=== PATIENT | male | born 1960 | race Caucasian/White ===

== ENCOUNTER 2022-11-26 15:40 | Inpatient (IN) | payer OTHER ==
[~2022-11-26] VITALS: Ht 165.1 cm; Wt 74.4 kg
--- NOTE | 2022-11-26 15:40 | NUR ---
BECCA MELARA from [facility] in [place] with c/o hyperglycemia. Per EMS BS=HI, pt was given NS 500ML bolus in route to ER. Pt to ER Rm 1A via EMS gurney. Placed on cont quality assurance monitor, pulse ox and BP. at bedside for MSE.
[2022-11-26 16:02] LABS: HEMATOCRIT 28.9 % (36.7-47.1); MEAN CORPUSCULAR HEMOGLOBIN 29.8 uug (23.8-33.4); MEAN CORPUSCULAR VOLUME 93.8 fL (73.0-96.2); PLATELET COUNT (AUTO) 173 K/uL (152-348)
[2022-11-26 16:14] LABS: ALANINE AMINOTRANSFERASE 12 U/L (16-63); ALKALINE PHOSPHATASE 109 U/L (50-136); BILIRUBIN,TOTAL 0.2 mg/dL (0.2-1.0); CARBON DIOXIDE 23 mmol/L (21-32); LIPASE 31 U/L (73-393); MAGNESIUM 2.5 mg/dL (1.8-2.4); PHOSPHOROUS 2.6 mg/dL (2.5-4.9); TOTAL PROTEIN, SERUM 6.6 g/dL (6.4-8.2)
[2022-11-26 16:33] LABS: ASPARTATE AMINOTRANSFERASE < 5 U/L (15-37)
[2022-11-26 16:36] LABS: CHLORIDE 127 mmol/L (98-107); POTASSIUM 2.3 mmol/L (3.5-5.1); UREA NITROGEN, BLOOD 112 mg/dL (7-18)
[2022-11-26] MEDS ORDERED: ASPI81TA31 PO (16:37)
[2022-11-26] MEDS ORDERED: BETH10TA2 PO (16:37)
[2022-11-26] MEDS ORDERED: DOCU-141 PO (16:37)
[2022-11-26] MEDS ORDERED: ATOR20TA PO (16:37)
[2022-11-26] MEDS ORDERED: SITA100T PO (16:38)
[2022-11-26] MEDS ORDERED: DIVA125C5 PO (16:38)
[2022-11-26] MEDS ORDERED: NA P133E RC (16:38)
[2022-11-26] MEDS ORDERED: TAMS-3 PO (16:38)
[2022-11-26] MEDS ORDERED: SENN8.6T19 PO (16:38)
[2022-11-26] MEDS ORDERED: FERR325T28 PO (16:38)
[2022-11-26] MEDS ORDERED: OMEP20CA15 PO (16:38)
[2022-11-26] MEDS ORDERED: BISA10SU61 RC (16:38)
[2022-11-26] MEDS ORDERED: ESCI20TA PO (16:38)
[2022-11-26] MEDS ORDERED: INSU100C (16:38)
[2022-11-26] MEDS ORDERED: ACET325C7 PO (16:38)
[2022-11-26] MEDS ORDERED: ACET-2605 PO (16:38)
[2022-11-26] MEDS ORDERED: METO50TA16 PO (16:38)
[2022-11-26] MEDS ORDERED: MAGN400O6 PO (16:38)
[2022-11-26] MEDS ORDERED: QUET100T PO (16:38)
[2022-11-26] MEDS ORDERED: INSU100V7 SQ (16:38)
[2022-11-26] MEDS ORDERED: MIRT-121 PO (16:38)
--- NOTE | 2022-11-26 16:40 | NUR ---
Received telephone call from Ayaz in lab with multiple critical lab results, reported to ER physician.
[2022-11-26 16:42] LABS: ABG BASE EXCESS -6.8 mmol/L; ABG HCO3 18.4 mmol/L; ABG PH 7.327 (7.350-7.450); ABG PO2 64.7 mmHg (75.0-100.0); ABG SITE RIGHT RADIAL; ABG TOTAL HEMOGLOBIN 12.1 G/dL (13.5-18.0); COHb 0.3 % (0.5-1.5); MetHb 0.1 % (0.0-1.5); O2Hb 89.5 % (94.0-97.0); VENT MODE ROOM AIR
[2022-11-26] MEDS ORDERED: POTASSIUM CHLORIDE 200 ML ONE (16:44)
[2022-11-26] MEDS ORDERED: IV NORMAL SALINE 500 ML BAG IV ONE (16:45)
--- NOTE | 2022-11-26 16:55 | NUR ---
Per ER physician pt to be admitted to CCU, nursing vine fruit farming supervisor notified. [facility] medical group called for admission.
[2022-11-26] MEDS: POTASSIUM CHLORIDE 50 ML IV SCH ×8 (17:18→20:37)
[2022-11-26] MEDS ORDERED: ONDANSETRON 4 MG/2 ML VIAL IV PRN (17:30)
[2022-11-26] MEDS ORDERED: ACETAMINOPHEN ES 500 MG TABLET PO PRN (17:30)
[2022-11-26] MEDS ORDERED: BISACODYL 10 MG SUPP.RECT RC PRN (17:30)
[2022-11-26] MEDS ORDERED: MAGNESIUM HYDROXIDE 30 ML LIQUID UDC PO PRN ×2 (17:30)
[2022-11-26] MEDS ORDERED: DEXTROSE 50% 50 ML DISP.SYRIN IV PRN (17:30)
[2022-11-26] MEDS ORDERED: ACETAMINOPHEN 325 MG TABLET PO PRN (17:30)
[2022-11-26] MEDS ORDERED: REMEDY ESSENTIAL ZINC PASTE 113 GM TP PRN (17:30)
--- NOTE | 2022-11-26 17:55 | NUR ---
Per pharmacist's order, I am able to administer insulin drip and KCl at the same time. Safety measures in place. Will continue to monitor.
[2022-11-26] MEDS: TAMSULOSIN HCL 0.4 MG CAP.SR.24H PO SCH (18:00)
[2022-11-26] MEDS: BLOOD SUGAR DIAGNOSTIC 1 EACH STRIP VI SCH ×6 (18:05→23:00)
[2022-11-26 18:11] LABS: *BILIRUBIN,URIN NEGATIVE (NEGATIVE); *BLOOD, URINE 2+ (NEGATIVE); *CLARITY,URINE CLEAR (CLEAR); *COLOR,URINE YELLOW (YELLOW); *KETONES,URINE NEGATIVE (NEGATIVE); *UROBILINOGEN,URINE 0.2 E.U./dl (NORMAL); LEUKOCYTE ESTERASE ,URINE NEGATIVE (NEGATIVE); NITRITE, URINE NEGATIVE (NEGATIVE); PH,URINE 5.5 (5.0-8.0)
[2022-11-26 18:14] LABS: UGLUCOSE 3+ (NEGATIVE)
[2022-11-26] MEDS ORDERED: IV 1/2 NS + KCL 20 MEQ BAG 1,000 ML IV PRN (18:30)
[2022-11-26] MEDS ORDERED: INSULIN REGULAR, HUMAN 100 UNITS in IV NORMAL SALINE 100 ML IV ONE ×2 (18:30)
[2022-11-26 19:00] VITALS: BP 112/74; TEMP 98.6; O2SAT 95
[2022-11-26] MEDS ORDERED: INSULIN REGULAR, HUMAN 100 UNITS in IV NORMAL SALINE 100 ML IV PRN ×2 (19:00)
--- NOTE | 2022-11-26 19:00 | NUR ---
Received in bed , patient is non verbal lungs clear, refused to open mouth and eyes, mouth dry 1900 blood sugar uis 372mg/dl insulin drip started @ 3.5 unit /hr potassium is 2.3 , potassium 80meq iv ordered . patient is not opening his mouth to be cleaned, all medication po is on hold patient is NPO Swallow evaluation ordered for 11/27/2022 2300 blood sugar 263mg/dl insulin drip is decreased to 3 units/hr
[2022-11-26 19:24] LABS: BACTERIA,URINE FEW /HPF (NONE SEEN); SQUAMOUS EPITHELIAL CELL,UR FEW /HPF (NONE SEEN); WBC,URINE NONE SEEN /HPF (0-3)
[2022-11-26 20:00] VITALS: BP 119/56; O2SAT 100
[2022-11-26] MEDS ORDERED: POTASSIUM CHLORIDE 50 ML ONE (20:18)
[2022-11-26] MEDS: METOPROLOL TARTRATE 50 MG TABLET PO SCH (20:51)
[2022-11-26] MEDS: ATORVASTATIN 20 MG TABLET PO SCH (20:51)
[2022-11-26] MEDS: MIRTAZAPINE 15 MG TABLET PO SCH (20:52)
[2022-11-26] MEDS: SENNOSIDES 1 TABLET PO SCH (20:52)
[2022-11-26] MEDS: QUETIAPINE FUMARATE 100 MG TABLET PO SCH (20:53)
[2022-11-26 21:00] VITALS: BP 112/70; O2SAT 100
[2022-11-26 22:00] VITALS: BP 111/74; O2SAT 100
[2022-11-26 23:00] VITALS: BP 113/74; O2SAT 95
[2022-11-27] VITALS (29 sets, daily range): BP systolic 81–152; BP diastolic 34–82; TEMP 97–99.9; O2SAT 82–99
--- NOTE | 2022-11-27 | NUR ---
0000 BLOOD SUGAR 214MG/DL INSULIN DRIP IS 2UNIT/HR
[2022-11-27] MEDS: BLOOD SUGAR DIAGNOSTIC 1 EACH STRIP VI SCH ×14 (00:35→23:58)
[2022-11-27 01:10] LABS: CREATININE 2.5 mg/dL (0.6-1.3); POTASSIUM 3.9 mmol/L (3.5-5.1)
--- NOTE | 2022-11-27 02:00 | NUR ---
Blood sugar 162mg/dl insulin drip decreased to 1.5 unit/hr
[2022-11-27 04:53] LABS: HEMATOCRIT 25.9 % (36.7-47.1); MEAN CORPUSCULAR HEMOGLOBIN 30.7 uug (23.8-33.4); PLATELET COUNT (AUTO) 170 K/uL (152-348)
[2022-11-27 05:11] LABS: CREATININE 2.6 mg/dL (0.6-1.3); MAGNESIUM 2.4 mg/dL (1.8-2.4); POTASSIUM 3.8 mmol/L (3.5-5.1)
[2022-11-27 05:20] LABS: THYROID STIMULATING HORMONE 1.015 mIU/mL (0.358-3.740)
[2022-11-27] MEDS ORDERED: PANTOPRAZOLE SODIUM 40 MG VIAL ONE (06:38)
[2022-11-27] MEDS ORDERED: PANTOPRAZOLE SODIUM 40 MG TABLET.DR PO ONE (06:41)
[2022-11-27] MEDS: PANTOPRAZOLE SODIUM 40 MG TABLET.DR PO SCH (06:42)
--- NOTE | 2022-11-27 06:46 | NUR ---
Sent morning labs to [facility] , waiting for new orders order in for swallow evaluation patient is awake , alert x2 and speaking with a normal tone turned and reposition, urine x4, no bm patient is npo. 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 blood sugar 0600 196mg/dl increased insulin drip to 2 unit/hr potassium is now 3.8, no signs of distress report given to lucy GALLEGOS .
--- NOTE | 2022-11-27 07:00 | NUR ---
Received pt. sleeping intermittently when engage AAOx4. vitals stable on sinus tachycardia, afebrile. 2L NC saturation unreadable on ekg monitor. Pt. Received on insulin drip running at 2units/hr. IV line bilateral upper extremities patent and infusing with IVF. Diaper on and sucked in urine, patient changed. No skin breakdown noted. Will continue with care plan.
--- NOTE | 2022-11-27 07:30 | NUR ---
Call Pharmacist Debra and informed her of system error when performing accu-check. All high risk medications requiring a witness signature when changes to the drip occurred based on glucose level. Patient received on Insulin drip. and when accu-check done an changes in rate performed system did not required a witness as per protocol. Pharmacist agreed this is out of protocol.
[2022-11-27] MEDS ORDERED: METOPROLOL TARTRATE 50 MG TABLET ONE ×2 (08:00→08:02)
[2022-11-27] MEDS ORDERED: DOCUSATE SODIUM 100 MG CAPSULE PO ONE (08:00)
[2022-11-27] MEDS ORDERED: ESCITALOPRAM OXALATE 10 MG TABLET ONE (08:00)
[2022-11-27] MEDS ORDERED: ASPIRIN 81 MG TAB.CHEW ONE (08:00)
[2022-11-27] MEDS ORDERED: BETHANECHOL CHLORIDE 25 MG TABLET ONE (08:01)
[2022-11-27] MEDS: DOCUSATE SODIUM 100 MG CAPSULE PO SCH (08:19)
[2022-11-27] MEDS: METOPROLOL TARTRATE 50 MG TABLET PO SCH ×2 (08:19→21:00)
[2022-11-27] MEDS: ASPIRIN 81 MG TAB.CHEW PO SCH (08:19)
[2022-11-27] MEDS: ESCITALOPRAM OXALATE 10 MG TABLET PO SCH (08:19)
[2022-11-27] MEDS: BETHANECHOL CHLORIDE 10 MG TABLET PO SCH ×3 (08:33→16:40)
[2022-11-27] MEDS ORDERED: Medication Not On Formulary EA (Sitagliptin Phosphate (Januvia) 100 MG) PO SCH (09:00)
--- NOTE | 2022-11-27 09:17 | NUR ---
Pharmacist Rebecca at bedside and at this time I was informed there is a glitch in the computer system and for now I should document accu-check with nursing notes on IV spread-sheet.
[2022-11-27] MEDS ORDERED: INSULIN REGULAR, HUMAN 300 UNITS/3 ML VIAL SQ PRN (09:45)
[2022-11-27] MEDS ORDERED: DEXTROSE 50% 50 ML DISP.SYRIN IV PRN ×2 (09:45→17:00)
--- NOTE | 2022-11-27 10:00 | NUR ---
Attending ARMANDO Schroeder in the unit to follow up on pt. report given orders to insert sanches catheter received. Insulin drip dcd as ordered and IVF changed.
[2022-11-27] MEDS: IV D5 1/2 NS 1000 ML 1,000 ML IV PRN ×3 (10:22→20:24)
[2022-11-27] MEDS: INSULIN REGULAR, HUMAN 300 UNIT/3 ML VIAL SQ PRN ×3 (12:00→19:13)
--- NOTE | 2022-11-27 16:17 | NUR ---
Patient with saturation down to 87% sustained for 30 minutes O2 increased to 4LNC. this happened when pt. was repositioned to the right side. saturation improved to 92%. Will continue to monitor. Addendum: 11/27/22 at 1751 by BRIDGER HUIZAR RN [id number] pt. again with saturation dropping Oxygen increased to 6LNC
--- NOTE | 2022-11-27 16:30 | NUR ---
Attending called to be notified of pt's most current blood sugar of 435. patient covered with SS per protocol awaiting call back.
[2022-11-27] MEDS ORDERED: ACETAMINOPHEN 325 MG TABLET ONE (16:38)
[2022-11-27] MEDS: ACETAMINOPHEN 325 MG TABLET PO PRN (16:40)
--- NOTE | 2022-11-27 16:57 | NUR ---
A call back from attending report of most current pt's condition and orders for NPO, Swallow eval and to start on Q6H Moderate SS received.
[2022-11-27] MEDS ORDERED: TAMSULOSIN HCL 0.4 MG CAP.SR.24H ONE (17:22)
[2022-11-27] MEDS: TAMSULOSIN HCL 0.4 MG CAP.SR.24H PO SCH (17:29)
--- NOTE | 2022-11-27 17:30 | NUR ---
Pt. semi-lethargic now NPO.
--- NOTE | 2022-11-27 17:47 | NUR ---
Post ABG pt. placed on NR 15Liters saturation of 88-89. ABg results reported to attending ARMANDO. Elda.
--- NOTE | 2022-11-27 17:47 | NUR ---
Attending notified of patient's decompensation orders for stat chest X-ray and ABG received.
[2022-11-27 21:11] LABS: CREATININE 2.8 mg/dL (0.6-1.3); POTASSIUM 3.8 mmol/L (3.5-5.1)
[2022-11-27] MEDS ORDERED: MIRTAZAPINE 15 MG TABLET ONE (21:44)
[2022-11-27] MEDS ORDERED: ATORVASTATIN 20 MG TABLET ONE (21:45)
[2022-11-27] MEDS ORDERED: QUETIAPINE FUMARATE 100 MG TABLET ONE (21:45)
[2022-11-27] MEDS: MIRTAZAPINE 15 MG TABLET PO SCH (21:48)
[2022-11-27] MEDS: ATORVASTATIN 20 MG TABLET PO SCH (21:48)
[2022-11-27] MEDS: QUETIAPINE FUMARATE 100 MG TABLET PO SCH (21:48)
[2022-11-27] MEDS: SENNOSIDES 1 TABLET PO SCH (21:52)
[2022-11-27] MEDS ORDERED: NOREPINEPHRINE BITARTRATE 4 MG/4 ML VIAL IV ONE (22:24)
[2022-11-27] MEDS ORDERED: NOREPINEPHRINE BITARTRATE 8 MG in IV NORMAL SALINE 242 ML IV PRN (22:30)
[2022-11-27] MEDS: NOREPINEPHRINE BITARTRATE 8 MG in IV NORMAL SALINE 242 ML IV PRN (22:30)
[2022-11-27] MEDS: IV 1/2NS 1000 ML 1,000 ML IV PRN (22:41)
[2022-11-28] VITALS (39 sets, daily range): BP systolic 83–134; BP diastolic 24–81; TEMP 98.2–100; O2SAT 74–97
[2022-11-28] LABS: ABG PCO2 34.5 mmHg (35.0-45.0); ABG PH 7.336 (7.350-7.450); ABG SITE RIGHT RADIAL; ABG TOTAL HEMOGLOBIN 11.8 G/dL (13.5-18.0); MetHb 0.6 % (0.0-1.5); O2Hb 82.5 % (94.0-97.0); VENT MODE Nasal Cannula
[2022-11-28 01:29] LABS: CREATININE 3.1 mg/dL (0.6-1.3); MAGNESIUM 1.7 mg/dL (1.8-2.4); PHOSPHOROUS 3.3 mg/dL (2.5-4.9); POTASSIUM 3.1 mmol/L (3.5-5.1)
[2022-11-28] MEDS: IV 1/2NS 1000 ML 1,000 ML IV PRN ×3 (03:15→14:42)
[2022-11-28] MEDS: BLOOD SUGAR DIAGNOSTIC 1 EACH STRIP VI SCH ×4 (04:45→23:43)
[2022-11-28 04:54] LABS: HEMATOCRIT 27.7 % (36.7-47.1); MEAN CORPUSCULAR HEMOGLOBIN 30.2 uug (23.8-33.4); MEAN CORPUSCULAR VOLUME 93.8 fL (73.0-96.2); PLATELET COUNT (AUTO) 197 K/uL (152-348)
[2022-11-28 05:17] LABS: CREATININE 3.3 mg/dL (0.6-1.3); MAGNESIUM 1.6 mg/dL (1.8-2.4); PHOSPHOROUS 3.3 mg/dL (2.5-4.9); POTASSIUM 3.4 mmol/L (3.5-5.1)
[2022-11-28] MEDS: PANTOPRAZOLE SODIUM 40 MG TABLET.DR PO SCH (06:46)
--- NOTE | 2022-11-28 07:00 | NUR ---
Received patient on group sales manager in a semi-lethargic state, when awake oriented X1. Cardiac-r[place] on sinus tachycardia highest observed 120-125, levophed running sbp above 120's will titrate down per protocol. low-grade fever, On bipap 18/5 rate of 24 and 100% FIO2 saturation in the mid 90's. patient tachypneic. Pritchett to gravity NF in place auscultated. IV lines patent. Will continue to monitor.
[2022-11-28] MEDS: METOPROLOL TARTRATE 50 MG TABLET PO SCH ×2 (08:01→20:55)
[2022-11-28] MEDS: ESCITALOPRAM OXALATE 10 MG TABLET PO SCH (08:01)
[2022-11-28] MEDS: BETHANECHOL CHLORIDE 10 MG TABLET PO SCH ×3 (08:01→17:31)
[2022-11-28] MEDS: DOCUSATE SODIUM 100 MG CAPSULE PO SCH (08:01)
[2022-11-28] MEDS: ASPIRIN 81 MG TAB.CHEW PO SCH (08:01)
[2022-11-28] MEDS: ACETAMINOPHEN 325 MG TABLET PO PRN (08:03)
[2022-11-28 08:39] LABS: CREATININE 3.4 mg/dL (0.6-1.3); MAGNESIUM 1.6 mg/dL (1.8-2.4); PHOSPHOROUS 4.3 mg/dL (2.5-4.9); POTASSIUM 4.3 mmol/L (3.5-5.1)
[2022-11-28] MEDS: NOREPINEPHRINE BITARTRATE 8 MG in IV NORMAL SALINE 242 ML IV PRN (13:26)
--- NOTE | 2022-11-28 13:30 | NUR ---
Attending Elda ROBERTS in the unit to examine pt. report given orders to decrease IVF to 75cc/hr received,.
--- NOTE | 2022-11-28 14:28 | NUR ---
PAtient now with saturation of 97-98%, fully awake and verbal attempting to remove BIPAP and getting increasingly aggressive, pushing staff away.
--- NOTE | 2022-11-28 15:32 | NUR ---
DIO2 down to 80%.
[2022-11-28 16:17] LABS: CREATININE 3.4 mg/dL (0.6-1.3); POTASSIUM 5.3 mmol/L (3.5-5.1)
[2022-11-28] MEDS: MAGNESIUM SULFATE/D5W 100 ML IV SCH ×2 (17:29→18:55)
[2022-11-28] MEDS: TAMSULOSIN HCL 0.4 MG CAP.SR.24H PO SCH (17:31)
--- NOTE | 2022-11-28 17:48 | NUR ---
Oral care provided and pt. taken off bipap for 5 minutes, placed on NR. saturation drop to 79% patient noted to be in labor breathing placed back on BIPAP with saturation of 100%.
[2022-11-28] MEDS: INSULIN REGULAR, HUMAN 300 UNIT/3 ML VIAL SQ PRN ×3 (17:53→23:45)
[2022-11-28] MEDS: ATORVASTATIN 20 MG TABLET PO SCH (21:18)
[2022-11-28] MEDS: QUETIAPINE FUMARATE 100 MG TABLET PO SCH (21:18)
[2022-11-28] MEDS: MIRTAZAPINE 15 MG TABLET PO SCH (21:18)
[2022-11-28] MEDS: SENNOSIDES 1 TABLET PO SCH (21:18)
[2022-11-28 21:20] LABS: CREATININE 3.4 mg/dL (0.6-1.3); POTASSIUM 5.1 mmol/L (3.5-5.1)
[2022-11-28] MEDS: BUMETANIDE 1 MG/4 ML VIAL IV ONE ×2 (21:21→21:42)
[2022-11-28 21:24] LABS: MAGNESIUM 2.4 mg/dL (1.8-2.4); PHOSPHOROUS 4.6 mg/dL (2.5-4.9)
[2022-11-29] VITALS (56 sets, daily range): BP systolic 10–156; BP diastolic 30–63; TEMP 97.4–99.1; O2SAT 75–92
[2022-11-29 01:15] LABS: CREATININE 3.4 mg/dL (0.6-1.3); MAGNESIUM 2.2 mg/dL (1.8-2.4); PHOSPHOROUS 4.2 mg/dL (2.5-4.9); POTASSIUM 4.9 mmol/L (3.5-5.1)
[2022-11-29 04:46] LABS: MEAN CORPUSCULAR HEMOGLOBIN 30.6 uug (23.8-33.4)
[2022-11-29 04:48] LABS: MEAN CORPUSCULAR VOLUME 92.7 fL (73.0-96.2); PLATELET COUNT (AUTO) 75 K/uL (152-348)
[2022-11-29 05:05] LABS: CREATININE 3.4 mg/dL (0.6-1.3); MAGNESIUM 2.3 mg/dL (1.8-2.4); PHOSPHOROUS 4.3 mg/dL (2.5-4.9); POTASSIUM 4.8 mmol/L (3.5-5.1)
[2022-11-29 05:12] LABS: HEMATOCRIT 17.6 % (36.7-47.1)
[2022-11-29 05:23] LABS: MEAN CORPUSCULAR HEMOGLOBIN 30.5 uug (23.8-33.4)
[2022-11-29 05:25] LABS: MEAN CORPUSCULAR VOLUME 91.8 fL (73.0-96.2); PLATELET COUNT (AUTO) 75 K/uL (152-348)
[2022-11-29] MEDS: BLOOD SUGAR DIAGNOSTIC 1 EACH STRIP VI SCH ×3 (05:44→18:25)
[2022-11-29] MEDS: INSULIN REGULAR, HUMAN 300 UNIT/3 ML VIAL SQ PRN ×3 (05:46→18:27)
[2022-11-29] MEDS: PANTOPRAZOLE SODIUM 40 MG TABLET.DR PO SCH (06:11)
[2022-11-29] MEDS: IV 1/2NS 1000 ML 1,000 ML IV PRN (06:42)
[2022-11-29] MEDS: METOPROLOL TARTRATE 50 MG TABLET PO SCH ×2 (08:13→21:00)
[2022-11-29] MEDS: DOCUSATE SODIUM 100 MG CAPSULE PO SCH (08:17)
[2022-11-29] MEDS: ESCITALOPRAM OXALATE 10 MG TABLET PO SCH (08:18)
[2022-11-29] MEDS ORDERED: ASPIRIN 81 MG TAB.CHEW PO SCH (09:00)
--- NOTE | 2022-11-29 09:00 | NUR ---
Pt seen and examined by Dr. Tan
[2022-11-29 09:15] LABS: CREATININE 3.4 mg/dL (0.6-1.3); MAGNESIUM 2.4 mg/dL (1.8-2.4); PHOSPHOROUS 4.4 mg/dL (2.5-4.9); POTASSIUM 4.8 mmol/L (3.5-5.1)
--- NOTE | 2022-11-29 09:45 | NUR ---
Pt seen and examined by Rose Schroeder DNP. Clarification of orders, IVF 1/NS to run at 55cc/hr and Free H2O via NGT 250cc q 6 hrs. Noitified of H/H and low platelet count, ASA held this am. Blood transfusion ordered
--- NOTE | 2022-11-29 09:52 | NUR ---
ABG drawn and am CXR completed
[2022-11-29] MEDS ORDERED: PIPERACILLIN/TAZO 2.25 G in IV DEXTROSE 5% 50 ML IV SCH (10:00)
[2022-11-29] MEDS: PIPERACILLIN SODIUM/TAZOBACTAM 3.375 G in IV DEXTROSE 5% 100 ML IV SCH ×2 (10:23→21:10)
--- NOTE | 2022-11-29 12:15 | NUR ---
Per am CXR NG tube at GE junction advised to advance 10cm. NGT advanced 70 cm at right natre, secured in place. Position verified by Air ascultated over epigastrum
--- NOTE | 2022-11-29 12:30 | NUR ---
Pt desaturation to 84%. BIPAP with leak. RT notified, ordered Protecta gel seal. SBP in 70's Levo gtt increased for BP support
[2022-11-29] MEDS: IPRATROPIUM BROMIDE 0.5 MG/2.5 ML NEBU NEB SCH ×2 (12:50→19:26)
[2022-11-29 12:54] LABS: ABG BASE EXCESS -8.3 mmol/L; ABG HCO3 15.3 mmol/L; ABG PCO2 27.6 mmHg (35.0-45.0); ABG PH 7.363 (7.350-7.450); ABG PO2 57.7 mmHg (75.0-100.0); ABG SITE RIGHT RADIAL; VENT MODE BIPAP
[2022-11-29] MEDS ORDERED: ALBUTEROL SULFATE 2.5 MG/3 ML NEBU NEB SCH (13:30)
--- NOTE | 2022-11-29 14:25 | NUR ---
)s saturatioins in the low 80's. Pt with coarse breath sounds, suctioned for minimal secretions, BIPAP readjusted to minimize air leak. Remains on BIPAP rete 24 18/5 100% O2 call placed to Dr. Tan.
--- NOTE | 2022-11-29 14:40 | NUR ---
ECG changes appears to be A-fib with rapid VR 150's called for stat EKG, BP 84/42. Call polaced to Rose Schroeder DNP to notify of hemodynamic chamges.
[2022-11-29] MEDS ORDERED: DILTIAZEM HCL 25 MG IV IV ONE (14:45)
--- NOTE | 2022-11-29 14:50 | NUR ---
Recevied order for Cardizem 10mg IV to treat rapid HR per Rose Schroeder DNP
--- NOTE | 2022-11-29 15:20 | NUR ---
C Elda DNP updated on Pts condition, saturation remains low 76-82 despite changes to BIPAP and Cardizem for HR, transient decrease in rate to the 110's now 135-140. BP support with Levo at 0.05 mcg/kg/min, EKG confirmed A-fib with RVR.
[2022-11-29] MEDS ORDERED: DILTIAZEM HCL IV 125 MG in IV NORMAL SALINE 100 ML IV PRN (16:00)
--- NOTE | 2022-11-29 16:45 | NUR ---
Cardizem gtt started for Heart rate control, remains in A-fib RVR
[2022-11-29] MEDS: DILTIAZEM HCL IV 125 MG in IV NORMAL SALINE 100 ML IV PRN (16:46)
[2022-11-29] MEDS: PHENYLEPHRINE IV 50 MG in IV NORMAL SALINE 245 ML IV PRN ×2 (17:28→20:28)
--- NOTE | 2022-11-29 17:30 | NUR ---
Kimani started for BP support due to cardiac irritability plan to waen Levo as tolerated
[2022-11-29 17:45] LABS: HEMATOCRIT 23.3 % (36.7-47.1)
[2022-11-29 17:53] LABS: *BILIRUBIN,URIN NEGATIVE (NEGATIVE); *BLOOD, URINE 2+ (NEGATIVE); *CLARITY,URINE CLEAR (CLEAR); *COLOR,URINE YELLOW (YELLOW); *KETONES,URINE NEGATIVE (NEGATIVE); *UROBILINOGEN,URINE 0.2 E.U./dl (NORMAL); LEUKOCYTE ESTERASE ,URINE 2+ (NEGATIVE); NITRITE, URINE NEGATIVE (NEGATIVE); UGLUCOSE NEGATIVE (NEGATIVE)
[2022-11-29 17:59] LABS: *CREATININE,URINE 44.7 mg/dL (30-125); *URINE TOTAL PROTEIN RANDOM 70.3 mg/dL (<150/24HR)
[2022-11-29] MEDS: TAMSULOSIN HCL 0.4 MG CAP.SR.24H PO SCH (17:59)
[2022-11-29] MEDS ORDERED: FUROSEMIDE 40 MG/4 ML VIAL IV ONE (18:00)
[2022-11-29] MEDS ORDERED: BUMETANIDE 1 MG/4 ML VIAL IV ONE (19:45)
[2022-11-29] MEDS: MIRTAZAPINE 15 MG TABLET PO SCH (21:09)
[2022-11-29] MEDS: QUETIAPINE FUMARATE 100 MG TABLET PO SCH (21:09)
[2022-11-29] MEDS: ATORVASTATIN 20 MG TABLET PO SCH (21:09)
[2022-11-29] MEDS: ACETAMINOPHEN 325 MG TABLET PO PRN (21:09)
[2022-11-29] MEDS: SENNOSIDES 1 TABLET PO SCH (21:12)
[2022-11-30] VITALS (62 sets, daily range): BP systolic 83–132; BP diastolic 33–77; TEMP 98.1–99.5; O2SAT 76–97
[2022-11-30] MEDS ORDERED: BUMETANIDE 1 MG/4 ML VIAL ONE (00:03)
[2022-11-30] MEDS: IPRATROPIUM BROMIDE 0.5 MG/2.5 ML NEBU NEB SCH ×4 (00:38→19:17)
[2022-11-30] MEDS: DILTIAZEM HCL IV 125 MG in IV NORMAL SALINE 100 ML IV PRN ×2 (00:55→07:30)
[2022-11-30] MEDS: PHENYLEPHRINE IV 50 MG in IV NORMAL SALINE 245 ML IV PRN ×4 (00:58→08:20)
[2022-11-30 04:52] LABS: HEMATOCRIT 25.3 % (36.7-47.1); MEAN CORPUSCULAR HEMOGLOBIN 30.3 uug (23.8-33.4); MEAN CORPUSCULAR VOLUME 90.5 fL (73.0-96.2); PLATELET COUNT (AUTO) 70 K/uL (152-348)
[2022-11-30 05:05] LABS: CREATININE 3.7 mg/dL (0.6-1.3); MAGNESIUM 2.4 mg/dL (1.8-2.4); PHOSPHOROUS 6.9 mg/dL (2.5-4.9); POTASSIUM 5.4 mmol/L (3.5-5.1)
[2022-11-30] MEDS ORDERED: PHENYLEPHRINE 10 MG/1 ML VIAL ONE (05:06)
[2022-11-30] MEDS: BLOOD SUGAR DIAGNOSTIC 1 EACH STRIP VI SCH ×4 (05:51→17:25)
[2022-11-30] MEDS: INSULIN REGULAR, HUMAN 300 UNIT/3 ML VIAL SQ PRN ×4 (05:52→17:43)
--- NOTE | 2022-11-30 06:38 | NUR ---
Pt received in CCU 1 on BIPAP 20/5 BUR 24 fIO2 100% Pt sat around 80%. Pt able to cooperate for eye care and understood no to pull Bipap mask. Pt remains on Neosynephrine to sustain SBP. nO FAMILY MEMBER TO UPDATE PLAN OF CARE. Monitor glucose MN 210 in AM 201, need insulin coverage Pt tolerates well water flushed and NA improved this AM to 150. Concha Galindo was called for critical value BUN 111 K 5.4 Cr 3.7 Md order to wait for the rounding MD in AM. Pt received BUMEX no good response and WT IN AM 157.9 P. Continue monitoring condition, BIPAP remains same setting, f/c to gravity HOB elevated and Pt on vasopressor drip. h/h 8.5/25.3 post PRBSx1 transfusion given on 11/29/22 Endorse care to incoming nurse
[2022-11-30] MEDS: PANTOPRAZOLE SODIUM 40 MG TABLET.DR PO SCH (07:02)
--- NOTE | 2022-11-30 07:30 | NUR ---
Received report on Pt, lying in bed with eyes closed awakes to verbal and light tactile stimuli, open eyes and moves upper extremities to command. See full assessment hemodynamically stable on Cardizem gtt and pressor support.
--- NOTE | 2022-11-30 08:20 | NUR ---
Lung sounds with rhonchi, Received Atrovent treatment and NT suctioned per RT, Thick blood tinged sputum, sent for Culture. Vagal response with sustained decreased HR Sinus Bradycardia in 50's, Cardizem gtt decreased
[2022-11-30] MEDS: DOCUSATE SODIUM 100 MG CAPSULE PO SCH (08:44)
[2022-11-30] MEDS: PANTOPRAZOLE ORAL SUSPENSION 40 MG SUSPDR.PKT NG SCH (08:44)
[2022-11-30] MEDS: ESCITALOPRAM OXALATE 10 MG TABLET PO SCH (08:45)
[2022-11-30] MEDS: METOPROLOL TARTRATE 50 MG TABLET PO SCH ×2 (08:46→20:38)
--- NOTE | 2022-11-30 09:00 | NUR ---
ECG remains SR 80',s BP stable on support. Cardizem gtt at 12mg/hr, Kimani remains at 3 mcg/kg/min
[2022-11-30] MEDS: PIPERACILLIN SODIUM/TAZOBACTAM 3.375 G in IV DEXTROSE 5% 100 ML IV SCH ×2 (10:00→21:04)
[2022-11-30 10:21] LABS: ABG BASE EXCESS -11.6 mmol/L; ABG HCO3 13.6 mmol/L; ABG PCO2 27.8 mmHg (35.0-45.0); ABG PH 7.306 (7.350-7.450); ABG PO2 62.1 mmHg (75.0-100.0); ABG SITE LEFT RADIAL; ABG TOTAL HEMOGLOBIN 7.6 G/dL (13.5-18.0); COHb 0.3 % (0.5-1.5); MetHb 0.6 % (0.0-1.5); VENT MODE BIPAP
[2022-11-30] MEDS ORDERED: AMIODARONE HCL IV 450 MG in IV DEXTROSE 5% 250 ML IV PRN (10:45)
[2022-11-30] MEDS ORDERED: AMIODARONE HCL IV 150 MG in IV DEXTROSE 5% 100 ML IV ONE (11:00)
--- NOTE | 2022-11-30 12:00 | NUR ---
Pt seen and examined by Dr. Doss received orders for diuretics
[2022-11-30] MEDS: PHENYLEPHRINE IV 100 MG in IV NORMAL SALINE 240 ML IV PRN ×2 (12:30→20:36)
--- NOTE | 2022-11-30 12:30 | NUR ---
Pt seen and examined by Dr. Tan. Cardizem gtt weaned off. cafeteria monitor shows NSR in 70-80's no ectopy. nita gtt double concentrated continues at 3/mcg/hg/min for BP support SBP 90's
[2022-11-30] MEDS ORDERED: METOLAZONE 2.5 MG TABLET PO STA (13:24)
[2022-11-30] MEDS ORDERED: BUMETANIDE 1 MG/4 ML VIAL IV ONE (13:30)
--- NOTE | 2022-11-30 14:00 | NUR ---
Remains in NSR controlled rate 88-92. BP stable with pressor support. No need for antiarrhythmic Dr Shi aware Amiodarone not started
[2022-11-30] MEDS: TAMSULOSIN HCL 0.4 MG CAP.SR.24H PO SCH (17:22)
[2022-11-30] MEDS: MIRTAZAPINE 15 MG TABLET PO SCH (20:47)
[2022-11-30] MEDS: SENNOSIDES 1 TABLET PO SCH (20:47)
[2022-11-30] MEDS: ACETAMINOPHEN 325 MG TABLET PO PRN (20:47)
[2022-11-30] MEDS: ATORVASTATIN 20 MG TABLET PO SCH (20:47)
[2022-11-30] MEDS: QUETIAPINE FUMARATE 100 MG TABLET PO SCH (20:48)
[2022-12-01] VITALS (41 sets, daily range): BP systolic 87–128; BP diastolic 17–58; TEMP 98.2–98.9; O2SAT 28–98
[2022-12-01] MEDS: BLOOD SUGAR DIAGNOSTIC 1 EACH STRIP VI SCH ×3 (00:07→12:16)
[2022-12-01] MEDS: IPRATROPIUM BROMIDE 0.5 MG/2.5 ML NEBU NEB SCH ×3 (00:51→13:19)
[2022-12-01] MEDS: PHENYLEPHRINE IV 100 MG in IV NORMAL SALINE 240 ML IV PRN ×2 (04:42→12:17)
[2022-12-01 05:11] LABS: HEMATOCRIT 21.3 % (36.7-47.1); MEAN CORPUSCULAR HEMOGLOBIN 30.3 uug (23.8-33.4); MEAN CORPUSCULAR VOLUME 90.8 fL (73.0-96.2)
[2022-12-01 05:36] LABS: BILIRUBIN,TOTAL 0.4 mg/dL (0.2-1.0); CREATININE 3.9 mg/dL (0.6-1.3); MAGNESIUM 2.4 mg/dL (1.8-2.4); PHOSPHOROUS 7.8 mg/dL (2.5-4.9); POTASSIUM 5.2 mmol/L (3.5-5.1); TOTAL PROTEIN, SERUM 4.9 g/dL (6.4-8.2)
[2022-12-01] MEDS: INSULIN REGULAR, HUMAN 300 UNIT/3 ML VIAL SQ PRN (05:50)
[2022-12-01 06:01] LABS: PLATELET COUNT (AUTO) 43 K/uL (152-348)
--- NOTE | 2022-12-01 06:43 | NUR ---
Pt received in CCU 1 on BIPAP setting 20/10BUR 24 fIO2 100% Pt sat 94-98%. Pt able to cooperate for eye care and understood no to pull Bipap mask. Pt remains on Neosynephrine to sustain SBP. NO FAMILY MEMBER TO UPDATE PLAN OF CARE. Monitor glucose in AM 173 insulin given according to sliding scale. Pt tolerates well water flushed. Dr Wolff was notified for abnormal labs this AM.. Dr WOLFF gave orders. Pt received diuretics during AM SHIFT.total output 650 ml. WT IN AM 160 pounds. Continue monitoring condition, BIPAP remains same setting, f/c to gravity HOB elevated and Pt on vasopressor drip. Pending to be transfuse one unit of PRBC FOR HEM 7.1 Endorse care to incoming nurse
--- NOTE | 2022-12-01 07:00 | NUR ---
Received pt. on BIPAP 04/03 Rate of 24 FIO2 100%, Tachypneic rate 30. On monitoring coordinator NSR with sbp maintained above 90's with neosynephrine running at maximum rate. Pritchett to gravity with minimal sedimented output. IV line patent. NG-T in place. Will continue to monitor.
[2022-12-01] MEDS: PANTOPRAZOLE ORAL SUSPENSION 40 MG SUSPDR.PKT NG SCH (08:03)
[2022-12-01] MEDS: DOCUSATE SODIUM 100 MG CAPSULE PO SCH (08:03)
[2022-12-01] MEDS: METOPROLOL TARTRATE 50 MG TABLET PO SCH (08:03)
[2022-12-01] MEDS: ESCITALOPRAM OXALATE 10 MG TABLET PO SCH (08:03)
[2022-12-01 09:17] LABS: ABG BASE EXCESS -12.6 mmol/L; ABG HCO3 13.8 mmol/L; ABG PCO2 33.3 mmHg (35.0-45.0); ABG PH 7.235 (7.350-7.450); ABG PO2 75.7 mmHg (75.0-100.0); ABG SITE RIGHT RADIAL; ABG TOTAL HEMOGLOBIN 6.7 G/dL (13.5-18.0); MetHb 0.5 % (0.0-1.5); O2Hb 92.6 % (94.0-97.0); VENT MODE BIPAP
[2022-12-01] MEDS: PIPERACILLIN SODIUM/TAZOBACTAM 3.375 G in IV DEXTROSE 5% 100 ML IV SCH (09:26)
--- NOTE | 2022-12-01 09:30 | NUR ---
Pulmonary services, Dr. Tan in the unit to follow up on pt. report given. Orders to continue with care plan received.
--- NOTE | 2022-12-01 10:50 | NUR ---
Attending Dr. Lopez in the unit to follow up on pt. report given and ok with no PRBC's transfusion. and orders to start NG -T feeding as recommended received.
[2022-12-01] MEDS ORDERED: JEVITY 1.2 1000 ML LIQUID GT PRN ×2 (11:00→11:12)
--- NOTE | 2022-12-01 12:39 | NUR ---
A message from attending NO feeding for now. No Hd catheter insertion either.
--- NOTE | 2022-12-01 15:30 | NUR ---
PM care provided half way pt. started to desaturate down to the 60-70% tachypneic SBP drop to 88% Attending physician notified. Awaiting for orders. Pt's mask also changed by RT pt. did not tolerate and unable to provide oral care.
--- NOTE | 2022-12-01 16:17 | NUR ---
A call back from attending orders to start levophed received and implemented.
[2022-12-01] MEDS ORDERED: NOREPINEPHRINE BITARTRATE 8 MG in IV NORMAL SALINE 242 ML IV PRN (17:00)
[2022-12-01] MEDS ORDERED: NOREPINEPHRINE BITARTRATE 32 MG in IV NORMAL SALINE 218 ML IV PRN (17:00)
--- NOTE | 2022-12-01 17:03 | NUR ---
After starting levophed no sbp reading unreadable saturation patient cyanotic pulses not present.
--- NOTE | 2022-12-01 17:05 | NUR ---
Patient apneic for one minute. Pupils fixed and dilated. No audible heart sounds. No breath sounds for one minute. No palpable pulses for one minute. No corneal reflexes. Patient pronounced by Katlyn Mcguire. [employer] notified at [id number] Reference Number of [id number]
--- NOTE | 2022-12-01 17:15 | NUR ---
[employer] called and report given to Relay Tester Helper Zaida. Reference number [id number] received. [facility] [employer] informed that pt. came in with DNR/DNI POLST with no information or contact number from any family member or underwriting service representative.
--- NOTE | 2022-12-01 17:30 | NUR ---
postmortem care provided, all IV lines dcd. toe tag applied, tag applied to body-bag. No belongings. Nursing supervisor road administrator notified and I was instructed to call security.
--- NOTE | 2022-12-01 17:44 | NUR ---
Nursing [employer] Margaux informed of [employer] request to have Legal Coordinator involved and find out about any next of kin of legal school admissions representative for pt.
--- NOTE | 2022-12-01 17:47 | NUR ---
I was informed by Nursing supervisor dairy sanitation that a message was left for Melinda HAWKINS at I also called and left a message at this number.
[2022-12-01] MEDS ORDERED: MEROPENEM 500 MG in IV NORMAL SALINE 50 ML IV SCH (18:00)
--- NOTE | 2022-12-01 19:08 | NUR ---
At this time pt's body pick-up by security department.
== END 2022-12-01 19:15 | DRG 420 ==
LOC: ER 15:40 → TRANSITION 17:42 → CCU 11-28 19:50
PROVIDERS: ADMIT Nurse Practitioner Acute Care; ATTEND Internal Medicine
PROC: 5A09557 Assistance with Respiratory Ventilation, Greater than 96 Consecutive Hours, Continuous Positive Airway Pressure (ICD-10-PCS; principal; 2022-11-27)
PROC: B546ZZA Ultrasonography of Right Subclavian Vein, Guidance (ICD-10-PCS; 2022-11-28)
PROC: 05H533Z Insertion of Infusion Device into Right Subclavian Vein, Percutaneous Approach (ICD-10-PCS; 2022-11-28)
PROC: 30233N1 Transfusion of Nonautologous Red Blood Cells into Peripheral Vein, Percutaneous Approach (ICD-10-PCS; 2022-11-29)
DX: E11.00 Type 2 diabetes mellitus with hyperosmolarity without nonketotic hyperglycemic-hyperosmolar coma (NKHHC) (principal); N17.0 Acute kidney failure with tubular necrosis; J96.01 Acute respiratory failure with hypoxia; R65.21 Severe sepsis with septic shock; J69.0 Pneumonitis due to inhalation of food and vomit; A41.9 Sepsis, unspecified organism; G92.8 Other toxic encephalopathy; E11.10 Type 2 diabetes mellitus with ketoacidosis without coma; E43 Unspecified severe protein-calorie malnutrition; D63.8 Anemia in other chronic diseases classified elsewhere; E11.22 Type 2 diabetes mellitus with diabetic chronic kidney disease; E78.5 Hyperlipidemia, unspecified; E86.1 Hypovolemia; E87.6 Hypokalemia; Z66 Do not resuscitate; Z79.84 Long term (current) use of oral hypoglycemic drugs; Z87.891 Personal history of nicotine dependence; N18.30 Chronic kidney disease, stage 3 unspecified; I12.9 Hypertensive chronic kidney disease with stage 1 through stage 4 chronic kidney disease, or unspecified chronic kidney disease; F32.9 Major depressive disorder, single episode, unspecified; E86.9 Volume depletion, unspecified; E88.09 Other disorders of plasma-protein metabolism, not elsewhere classified; Z68.27 Body mass index [BMI] 27.0-27.9, adult; F20.9 Schizophrenia, unspecified; N40.0 Benign prostatic hyperplasia without lower urinary tract symptoms; D69.6 Thrombocytopenia, unspecified; Z79.4 Long term (current) use of insulin; E87.0 Hyperosmolality and hypernatremia; E83.41 Hypermagnesemia; D68.69 Other thrombophilia; I48.91 Unspecified atrial fibrillation; J90 Pleural effusion, not elsewhere classified; M10.9 Gout, unspecified; N39.0 Urinary tract infection, site not specified
CPT/HCPCS: 36415; 36600; 71045; 82378; 82803; 83605; 83690; 83735; 84100; 84300; 84443; 84550; 85018; 85025; 85730; 86140; 86850; 86900; 86901; 86920; 87040; 93005; 94003; 94640; 94660; 94664; 94760; 99082-TC; A4663; A6209; C1758; C9113; G0378; J0282; J1815; J1940; J2185; J2370; J2543; J3480; J3490; J3590; J7040; J7050; P9016